=== PATIENT | male | born 1980 | race Caucasian/White ===

== ENCOUNTER 2016-11-11 17:38 | Emergency (ER) | payer SELFPAY ==
[~2016-11-11] VITALS: Ht 188 cm; Wt 71.8 kg
[~2016-11-11 17:38] MED LIST: EPIPEN ADU0.3 MG/0.3 IM; KEFLEX500 MG PO; MOTRIN800 MG PO; NORCO 7.5/321 TABLET PO; VENTOLIN HFA18 GM IH
[2016-11-11 18:33] LABS: HEMATOCRIT 47.9 % (38.0-50.0); MCH 29.1 PG (29.0-34.0); MCHC 33.6 G/DL (30.0-36.0); MCV 86.5 FL (86-99); MEAN PLAT.VOLUME 10.3 uM^3 (9.0-12.4); PLATELET COUNT 264 K/uL (156-360); RBC DIS.WIDTH-CV 12.5 % (11.8-14.6); RBC DIS.WIDTH-SD 39.8 % (39-53); RED BLOOD COUNT 5.54 M/uL (4.00-5.50); WHITE BLOOD COUNT 9.1 K/uL (4.1-10.2)
[2016-11-11 18:40] LABS: CHLORIDE 100 mEq/L (99-109); POTASSIUM 4.1 mEq/L (3.7-5.4); SODIUM 137 mEq/L (136-147)
[2016-11-11 18:42] LABS: GLUCOSE 88 mg/dL (70-99)
[2016-11-11 18:44] LABS: ANION GAP 10 MEQ/L (2-14)
[2016-11-11 18:45] LABS: SERUM ETHYL ALCOHOL 40 mg/dL
[2016-11-11 18:46] LABS: GFR ESTIMATE (CALCULATED) > 59 mL/min/
[2016-11-11 18:48] LABS: UREA NITROGEN (BUN) 13 mg/dL (9-23)
[2016-11-11 18:49] LABS: SALICYLATE < 5.0 MG/DL (15-30)
[2016-11-11 20:58] LABS: ADD MIUA? NO; BILIRUBIN NEGATIVE; BLOOD NEGATIVE; COLOR YELLOW ((YELLOW)); GLUCOSE (STRIP) NEGATIVE; KETONES NEGATIVE; LEUKOCYTES NEGATIVE; NITRITE NEGATIVE; PROTEIN (STRIP) NEGATIVE; SPECIFIC GRAVITY 1.011 (1.000-1.030); UCUL ADDED? NO; UROBILINOGEN 0.2 MG/DL (0.2-1.0)
[2016-11-11 21:09] LABS: ADD MEDTOX COMMENT Y; AMPHETAMINE PRESUMPTIVE POSITIVE (500 ng/mL); BARBITURATES NEGATIVE (200 ng/mL); BENZODIAZEPINES NEGATIVE (150 ng/mL); COCAINE NEGATIVE (150 ng/mL); INTERNAL CONTROLS VALID? YES; METHADONE NEGATIVE (200 ng/mL); METHAMPHETAMINE NEGATIVE (500 ng/mL); OPIATES (MORPHINE) NEGATIVE (100 ng/mL); OXYCODONE NEGATIVE (100 ng/mL); PHENCYCLIDINE NEGATIVE (25 ng/mL); PROPOXYPHENE NEGATIVE (300 ng/mL); THC CANNABINOIDS PRESUMPTIVE POSITIVE (50 ng/mL); TRICYCLIC ANTIDEPRESSANTS NEGATIVE (300 ng/mL)
[2016-11-11 21:46] VITALS: BP 126/73
== END 2016-11-11 21:49 ==
LOC: EME 17:38
PROVIDERS: Physician Assistant
DX: F32.9 Major depressive disorder, single episode, unspecified (principal); R45.851 Suicidal ideations; J45.909 Unspecified asthma, uncomplicated; F17.200 Nicotine dependence, unspecified, uncomplicated
CPT/HCPCS: 80048; 81003; 84999; 85027; 99281; 99283; G0480